=== PATIENT | female | born 1965 ===

== ENCOUNTER 2024-10-15 14:10 | Emergency (ER) | payer BC, SELFPAY ==
[2024-10-15 14:11] VITALS: BMI 22.6
[2024-10-15 14:17] VITALS: BP 146/74
[2024-10-15 14:33] LABS: % Basophils 0.4 % (0-2); % Eosinophils 0.5 % (0-6); % Immature Granulocytes 0.3 % (0-0.5); % Lymphocytes 39.7 % (20.5-51.1); % Monocytes 5.2 % (1.7-9.3); % Neutrophils 53.9 % (42.2-75.2); Absolute Monocytes 0.4 10^3/uL (0.1-0.6); Absolute Neutrophils 4.1 10^3/uL (1.4-6.5); Hematocrit 36.9 % (37.0-47.0); Hemoglobin 12.8 g/dL (12.0-16.0); Mean Corp Hgb Conc. 34.7 g/dL (33.0-37.0); Mean Corpuscular Hgb 30.8 pg (27.0-31.0); Mean Corpuscular Volume 88.9 fL (81.0-99.0); Mean Platelet Volume 9.1 fL (7.4-10.4); Nucleated Red Blood Cells % 0 %; Platelet Count 322 10^3/uL (130-400); Red Blood Cell Count 4.15 10^6/uL (4.20-5.40); Red Cell Dist. Width 12.5 % (11.5-14.5); White Blood Cell Count 7.5 10^3/uL (4.8-10.8)
[2024-10-15 14:52] LABS: ALT (SGPT) 123 U/L (0-35); AST (SGOT) 46 U/L (14-36); Albumin 4.3 g/dl (3.5-5.0); Alkaline Phosphatase 159 U/L (38-126); Blood Urea Nitrogen 19 mg/dl (7-17); Calcium 9.4 mg/dl (8.4-10.2); Carbon Dioxide 24 mmol/L (22-30); Chloride 106 mmol/L (98-107); Estimated Creatinine Clearance 94 ml/min; Glucose 95 mg/dl (70-99); Potassium 3.9 mmol/L (3.5-5.1); Sodium 139 mmol/L (135-145); Total Bilirubin 0.5 mg/dl (0.2-1.3); Total Protein 6.8 g/dl (6.3-8.2); eGFR > 60.00
[2024-10-15] MEDS: ANTIVERT 25 MG PO (15:17)
[2024-10-15] MEDS: NSS 1000 IV (15:18)
--- NOTE | 2024-10-15 15:26 | ED.GENMED ---
History of Present Illness
General
Chief Complaint: Dizziness
Time Seen by Provider: 10/15/24 14:41
History of Present Illness
History of Present Illness:
58-year-old female without significant past medical history presenting for acute onset of dizziness. Patient reports symptoms started today. She notes that she had 2 episodes of dizziness that were positional, however seem to resolve. However
prior to arrival, got out of the shower, became very dizzy, described as room spinning. Denies ever having the symptoms in the past. Does note about a week ago she was having cold-like symptoms. Does report that she chronically sometimes has
left-sided headache and tinnitus, has been ongoing for months. Denies any fall or trauma. Denies weakness or numbness to her extremities. Symptoms are worse when she opens her eyes and when she looks to the right. Denies fever. Denies
additional acute medical complaints
Phy Exam
Physical Exam
Physical Exam:
General: Well-appearing, no clinical signs of dehydration, nontoxic and in no acute distress
HEENT: protecting airway, pupils equal and reactive, extraocular movements intact. Symptoms reproduced with extraocular movement testing
Neck: appears supple
CV: Normal heart rate, regular rhythm
Resp: No accessory muscle use, no increased work of breathing, lungs clear to auscultation bilaterally
Abd: no distension
Extremities: No deformities, no swelling
Neuro: alert, no focal neurologic deficit
: deferred
Rectal: deferred
Psych: Normal affect
Skin: Intact
Course
Orders/Labs/Results
Orders:
Orders
10/15/24 14:14
EKG [Electrocardiogram (*1)] Urgent
Reason for Study: Vertigo / Dizzy
EKG- Treatment ONCE
10/15/24 14:15
CBC/With Diff [Complete Blood Count/With Diff] Urgent
CMP [Comprehensive Metabolic Panel] Urgent
10/15/24 14:51
0.9% Sodium Chloride 1000 ml [Nss] 1,000 ml IV BOLUS
Meclizine [Antivert] 25 mg PO NOW STA
Physical Therapy Consult [Pt Eval And Treat] Urgent
Treatment: vertigo
Activity Level: Ambulate
10/15/24 15:05
CT Head W/o Iv Contrast Urgent
Comment:
Reason For Exam: dizziness, suspect vertigo
Abnormal Lab Results
10/15/24
14:15
RBC 4.15 L 10^6/uL
(4.20-5.40)
Hct 36.9 L %
(37.0-47.0)
BUN 19 H mg/dl
(7-17)
AST 46 H U/L
(14-36)
ALT 123 H U/L
(0-35)
Alkaline Phosphatase 159 H U/L
(38-126)
10/15/24 14:15
10/15/24 14:15
Vital Signs
Initial and Last Documented VS:
Initial Vital Signs
Temp
98.2 F
10/15/24 14:11
Last Documented Vital Signs
Temp BP Pulse Ox
98.2 F 146/74 100
10/15/24 14:11 10/15/24 14:17 10/15/24 14:30
MDM/Problems Addressed
MDM/Problems Addressed:
58-year-old female without significant past medical history presenting for acute onset of dizziness, positional. Vital signs are normal.
On exam, patient in no acute distress, however does appear uncomfortable secondary to the dizziness. Symptoms appear most consistent with BPPV. Patient is very symptomatic with movement, described as room spinning. No focal neurologic deficits on
exam with lower suspicion for central neurologic process. However patient does note the past several months she has been having intermittent left-sided headaches and tinnitus. For this reason we will screen with CT brain imaging. Will also
consult with PT for vestibular therapy. Will treat therapeutically with IV fluids and meclizine and reassess for improvement.
17:10 - Seen by PT, grossly positive for vertigo. Patient ambulated after treatments, is feeling much better. CT brain negative. Labs show mild transaminitis, however no abdominal symptoms, no elevation of T. bili. Feel patient is stable for
discharge with continued outpatient follow-up and supportive therapy. Patient provided information for vestibular therapy. Return precautions discussed and patient verbalized understanding
*EKG
Interpreted by ED Provider?: Yes
EKG Intrepretation Date: 10/15/24
EKG Intrepretation Time: 17:20
Interpretation: normal
Comparison EKG: no comparison EKG present
Heart Rate: 74
Rate: normal
Rhythm: sinus
[place]: normal axis
Interval: normal interval
QRS Pattern: normal QRS
Ischemia: no ischemia
*Critical Care Note
Total Time (30-74mins, 75-104mins- exclusive of procedures): Not Applicable
ED Attending Note
-
Portions of this chart may have been created with voice recognition software.� Occasional wrong word or��sound alike� substitutions may have occurred due to the inherent limitations of voice recognition software.
Discharge Plan
Departure
Patient Disposition: Home (Routine Discharge)
Date of Disposition: 10/15/24
Time of Disposition: 17:25
Patient with high blood pressure during this ER visit?: No
Condition: Good
Discharge Problem:
Vertigo
Instructions: Vertigo (a Type of Dizziness) (DC)
Prescriptions:
New
ondansetron 4 mg Tablet,Disintegrating
4 mg PO TIDPRN PRN (Reason: nausea/vomiting) Qty: 6 0RF
meclizine 12.5 mg tablet
12.5 mg PO TID PRN (Reason: dizziness) Qty: 15 0RF
Referrals:
UNKNOWN - PT DOES,NOT KNOW [Family Provider] -
Activity Restrictions/Additional Instructions:
You were seen in the emergency department for dizziness
You were found to have normal CT brain, EKG, blood work. You are suspected to have vertigo. Please arrange outpatient vestibular therapy
Please follow-up closely with your primary care physician.
Return to the emergency department for any worsening of your symptoms, or any development of chest pain, difficulty breathing, abdominal pain with persistent vomiting and inability to tolerate food or liquid by mouth (concern for dehydration),
weakness, headache or confusion, fever greater than 100.4, or any additional symptoms that are concerning to you.
Thank you for choosing [facility].
Interventions
Interventions:
*Risk Screen - Suicide Last Done: 10/15/24 14:11
*General Assessment Last Done: 10/15/24 14:11
*Neglect/Abuse Screening Last Done: 10/15/24 14:11
*Nursing Disposition Last Done: 10/15/24 17:45
ED- Neurological Assessment Last Done: 10/15/24 14:35
ED- Cardiac Assessment Last Done: 10/15/24 14:36
ED Swallowing Screen Last Done: 10/15/24 14:35
Discharge Date and Time
Discharge Date/Time: 10/15/24 17:45
Print Language: [place]
== END 2024-10-15 17:45 | disposition home or self-care (01) ==
LOC: EMR 14:10
PROVIDERS: EMERGENCY PHYSICIAN Student in an Organized Health Care Education/Training Program
DX: R42 Dizziness and giddiness (principal); R51.9 Headache, unspecified; H93.12 Tinnitus, left ear; R74.01 Elevation of levels of liver transaminase levels
CPT/HCPCS: 96360; 99284; 70450; 80053; 85025; 93005